=== PATIENT | female | born 2000 | race Caucasian/White ===

== ENCOUNTER 2018-03-29 12:06 | Emergency (ER) | payer MEDICARE ==
[~2018-03-29] VITALS: Ht 165.1 cm; Wt 171.9 kg
[~2018-03-29 12:06] MED LIST: ADVIR; ALBUTEROL; INSULIN; SINGULAR
[2018-03-29 12:15] VITALS: BP 150/78
--- NOTE | 2018-03-29 12:34 | NUR ---
PT AMBULATED TO BED 07
--- NOTE | 2018-03-29 12:34 | NUR ---
PT C/O COTTON SWAB STUCK IN R EAR. PAIN 0/10. HX---NONE MEDS--NONE
[2018-03-29 14:31] VITALS: BP 150/78
--- NOTE | 2018-03-29 14:31 | NUR ---
Patient discharged with v/s stable. Written and verbal after care instructions given and explained. Patient alert, oriented and verbalized understanding of instructions. Ambulatory with steady gait. All questions addressed prior to discharge. ID band removed. Patient advised to follow up with PMD. Rx of cortisporin otic suspension given. Patient educated on indication of medication including possible reaction and side effects. Opportunity to ask questions provided and answered.
== END 2018-03-29 14:31 | disposition home or self-care (01) ==
LOC: MED 12:06
DX: T16.1XXA Foreign body in right ear, initial encounter (principal); J45.909 Unspecified asthma, uncomplicated; E11.9 Type 2 diabetes mellitus without complications; E07.9 Disorder of thyroid, unspecified; Z79.4 Long term (current) use of insulin; Z91.030 Bee allergy status; Z79.899 Other long term (current) drug therapy; X58.XXXA Exposure to other specified factors, initial encounter; Y93.89 Activity, other specified; Y92.89 Other specified places as the place of occurrence of the external cause; Y99.8 Other external cause status
CPT/HCPCS: 99284

== ENCOUNTER 2020-02-12 05:33 | Emergency (ER) | payer SELFPAY ==
[~2020-02-12] VITALS: Ht 162.6 cm; Wt 184.2 kg
[2020-02-12 05:34] VITALS: BP 143/97
--- NOTE | 2020-02-12 05:43 | NUR ---
PT TAKEN TO BED 6
--- NOTE | 2020-02-12 06:03 | NUR ---
19 Y/O F PRESENTS TO ER C/O BL EAR PAIN X 3 DAYS. PT STATES THAT EAR PAIN STARTED ON THE RT EAR AND PROGRESSSED TO THE LEFT EAR SINCE YESTERDAY. PT DENIES ANY TRAUMA OR INJURY TO THE AFFECTED AREAS. DENIES ANY DISCHARGE. BED LOCKED AND IN LOWEST POSITION, SIDE RAIL UP X1. WILL CONTINUE TO MONITOR. MHX: ASTHMA, DIABETES ALLERGIES: BEE STINGS
--- NOTE | 2020-02-12 06:10 | NUR ---
Patient discharged with v/s stable. Written and verbal after care instructions given and explained. Patient alert, oriented and verbalized understanding of instructions. Ambulatory with steady gait. All questions addressed prior to discharge. ID band removed. Patient advised to follow up with PMD. Rx of NAPROSYN, OFLOXACIN given. Patient educated on indication of medication including possible reaction and side effects. Opportunity to ask questions provided and answered.
[2020-02-12 06:17] VITALS: BP 143/97
== END 2020-02-12 06:10 | disposition home or self-care (01) ==
LOC: MED 05:33
DX: H60.93 Unspecified otitis externa, bilateral (principal); Z79.899 Other long term (current) drug therapy
CPT/HCPCS: 99283

== ENCOUNTER 2020-02-15 20:11 | Emergency (ER) | payer BC | END 2020-02-15 20:45 | disposition home or self-care (01) | LOC: MED 20:11 | DX: H60.93 Unspecified otitis externa, bilateral (principal) | CPT/HCPCS: 99283 ==